=== PATIENT | female | born 2000 | race Caucasian/White ===

== ENCOUNTER 2022-02-19 15:28 | Emergency (ER) | payer OTHER ==
[~2022-02-19] VITALS: Ht 154.9 cm; Wt 50.0 kg
[2022-02-19 15:45] VITALS: BP 135/86; TEMP 98.7
[2022-02-19] MEDS ORDERED: CEPHALEXIN500 M1 PO (17:32)
[2022-02-19 18:07] VITALS: PULSE 75
== END 2022-02-19 18:00 | disposition home or self-care (01) ==
LOC: COL.ER 15:28
DX: R05.9 Cough, unspecified (principal)